=== PATIENT | male | born 1940 | race Caucasian/White ===

== ENCOUNTER 2022-05-23 13:25 | Emergency (ER) | payer OTHER ==
[~2022-05-23] VITALS: Ht 182.9 cm; Wt 108.9 kg
[2022-05-23 13:30] VITALS: BP_SYST 136
--- NOTE | 2022-05-23 13:30 | NUR ---
Patient triaged. VSS and patient appears in no acute distress at this time. Accompanied by EMT'S, awaiting available bed, and MD notified of need for MSE.
--- NOTE | 2022-05-23 15:40 | NUR ---
Patient is an 81-year-old male who presents to the ED by ambulance from [facility] status post witnessed mechanical fall earlier today. Staff noticed a small abrasion to the patient's forehead, so patient was sent for evaluation. Patient is currently mumbling, but this is reported to be his baseline. He states that he has no complaints at this time. No alleviating or exacerbating factors. Otherwise, patient denies headache, neck pain, loss of consciousness, numbness, tingling, weakness, or any other medical complaints at this time
--- NOTE | 2022-05-23 16:25 | NUR ---
FAMILY CONTACT ASHLEY KIRKLAND (DAUGHTER) [phone]
--- NOTE | 2022-05-23 17:56 | NUR ---
daughter bedside assisting with food. pt sitting up in bed. pt made aware of insurance arranging authorization for transportation.
[2022-05-23 21:30] VITALS: BP_SYST 136
--- NOTE | 2022-05-23 21:30 | NUR ---
Patient given written and verbal discharge instructions and verbalizes understanding. ER MD discussed with patient the results and care provided. Patient in stable condition. No Rx given. Patient educated on pain management and to follow up with PMD. Opportunity for questions provided and answered.
== END 2022-05-23 21:30 | disposition home or self-care (01) ==
LOC: SED 13:25
DX: S00.81XA Abrasion of other part of head, initial encounter (principal); E11.9 Type 2 diabetes mellitus without complications; I10 Essential (primary) hypertension; K21.9 Gastro-esophageal reflux disease without esophagitis; Z79.899 Other long term (current) drug therapy; W18.30XA Fall on same level, unspecified, initial encounter; Y93.89 Activity, other specified; Y92.89 Other specified places as the place of occurrence of the external cause; Y99.8 Other external cause status
CPT/HCPCS: 70450-TC; 76376; 99284